=== PATIENT | male | born 1975 | race Caucasian/White ===

== ENCOUNTER 2018-12-01 19:32 | Emergency (ER) | payer MEDICAID ==
[~2018-12-01] VITALS: Ht 185.4 cm; Wt 76.2 kg
[2018-12-02] MEDS ORDERED: Keflex500 MG PO (00:28)
== END 2018-12-02 00:40 | disposition home or self-care (01) ==
LOC: ER 19:32
DX: S68.121A Partial traumatic metacarpophalangeal amputation of left index finger, initial encounter (principal); W26.8XXA Contact with other sharp object(s), not elsewhere classified, initial encounter; Z91.048 Other nonmedicinal substance allergy status
CPT/HCPCS: 12002; 73140; 96372-59; 99283-25; J1885